=== PATIENT | male | born 1995 | race Caucasian/White ===

== ENCOUNTER 2017-03-27 08:37 | Emergency (ER) | payer BC, OTHER ==
[~2017-03-27] VITALS: Ht 170.2 cm; Wt 100.0 kg
[2017-03-27 08:48] VITALS: Ht 170.2 cm; Wt 100.0 kg
[2017-03-27] MEDS ORDERED: SOD CHLORIDE 0.9% 1,000 ML IV STA (09:12)
[2017-03-27] MEDS ORDERED: DIPHTH/TET/ACEL PERTUSS (ADULT) 0.5 ML VIAL IM* ONE (09:30)
[2017-03-27] MEDS ORDERED: ONDANSETRON 4 MG INJ IV ONE (09:30)
[2017-03-27] MEDS ORDERED: HYDROmorphONE 2 MG/ML SYG IV ONE (09:30)
[2017-03-27 09:38] LABS: BASOPHIL # 0.1 10^3/ul (0.0-0.1); BASOPHILS % 0.6 % (0.0-2.0); EOSINOPHILS # 0.1 10^3/ul (0.0-0.5); EOSINOPHILS % 0.8 % (0.0-7.0); HEMATOCRIT 50.5 % (42.0-52.0); HEMOGLOBIN 17.5 g/dl (14.0-18.0); LYMPHOCYTES # 2.4 10^3/ul (0.8-2.9); LYMPHOCYTES % 17.8 % (15.0-51.0); MEAN CORPUSCULAR HEMOGLOBIN 30.2 pg (29.0-33.0); MEAN CORPUSCULAR HGB CONC 34.7 g/dl (32.0-37.0); MEAN CORPUSCULAR VOLUME 87.1 fl (82.0-101.0); MEAN PLATELET VOLUME 10.9 fl (7.4-10.4); MONOCYTE # 0.8 10^3/ul (0.3-0.9); MONOCYTES % 5.9 % (0.0-11.0); NEUTROPHILS % 73.1 % (39.0-77.0); PLATELET COUNT 253 10^3/UL (140-415); POSITIVE DIFF @See below; RED CELL DISTRIBUTION WIDTH 12.3 % (11.5-14.5); WHITE BLOOD COUNT 13.6 10^3/ul (4.8-10.8)
[2017-03-27 09:56] LABS: CALCIUM 9.3 mg/dl (8.4-10.2); CREATININE 0.9 mg/dl (0.61-1.24); POTASSIUM 4.7 mmol/L (3.5-5.1)
[2017-03-27] MEDS ORDERED: IOHEXOL 300MG/ML 150 ML BTL ONE (10:12)
[2017-03-27] MEDS ORDERED: SOD CHLORIDE 0.9% 100 ML ONE (10:12)
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
--- NOTE | 2017-03-27 11:32 | RADRPT ---
PROCEDURE: Tibia and fibula radiograph CLINICAL INDICATION: Pain. COMPARISON: None relevant listed. TECHNIQUE: AP and lateral views of the left tibia and fibula. FINDINGS: No fracture. No suspicious bone lesion. Alignment is anatomic. Joint spaces are preserved. No localized soft tissue swelling. IMPRESSION: No acute fracture or subluxation. RPTAT: PP Physician Pushpa Date Time Electronically viewed and signed by Physician Pushpa on 03/27/2017 11:32 LG/
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
[2017-03-27] MEDS ORDERED: HYDROmorphONE 1 MG/ML SYG IV STA (12:23)
[2017-03-27 12:44] LABS: URINE BLOOD (Dip) POC Trace-intact (NEGATIVE)
[2017-03-27 13:16] LABS: ADD UMIC YES; UR ASCORBIC ACID NEGATIVE (NEGATIVE); UR BILIRUBIN (Dip) NEGATIVE (NEGATIVE); UR BLOOD (Dip) 1+ mg/dL (NEGATIVE); UR CLARITY CLEAR (CLEAR); UR COLOR YELLOW (YELLOW); UR GLUCOSE (Dip) NEGATIVE (NEGATIVE); UR KETONES (Dip) NEGATIVE (NEGATIVE); UR LEUKOCYTE ESTERASE (Dip) NEGATIVE Leu/ul (NEGATIVE); UR NITRITE (Dip) NEGATIVE (NEGATIVE); UR RBC 2 /HPF (0-5); UR SPECIFIC GRAVITY (Dip) 1.038 (1.003-1.030); UR TOTAL PROTEIN (Dip) NEGATIVE (NEGATIVE); UR UROBILINOGEN (Dip) NEGATIVE (NEGATIVE)
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
[2017-03-27] MEDS ORDERED: HYDR-906 PO (14:05)
[2017-03-27] MEDS ORDERED: HYDROCODONE/APAP (10/325) TAB PO ONE (15:00)
[2017-03-27 15:42] VITALS: BP 125/76; PULSE 94; RESP 18
== END 2017-03-27 15:49 | disposition home or self-care (01) ==
LOC: E/R 08:37
DX: S09.90XA Unspecified injury of head, initial encounter (principal); S82.112A Displaced fracture of left tibial spine, initial encounter for closed fracture; S92.412A Displaced fracture of proximal phalanx of left great toe, initial encounter for closed fracture; S70.02XA Contusion of left hip, initial encounter; S70.12XA Contusion of left thigh, initial encounter; S93.402A Sprain of unspecified ligament of left ankle, initial encounter; R07.9 Chest pain, unspecified; V22.4XXA Motorcycle driver injured in collision with two- or three-wheeled motor vehicle in traffic accident, initial encounter
CPT/HCPCS: 70450; 71010; 72125; 73510; 73550; 73564; 73590; 73610; 73630; 74177; 80048; 81001; 85025; 90471; 90715; 96374; 96375; 96376; 99285; J1170; J2405; J7030; Q9967; 81003